=== PATIENT | female | born 1980 | race Caucasian/White ===

== ENCOUNTER → 2017-02-24 | Outpatient (CLI) | payer BC, OTHER ==
[2017-02-24 08:45] LABS: ALANINE AMINOTRANSFERASE 31 U/L (9-52); ALBUMIN 4.4 g/dL (3.5-5.0); ALKALINE PHOSPHATASE 74 U/L (38-126); ANION GAP 12 (5-19); ASPARTATE AMINO TRANSFERASE 23 U/L (14-36); BILIRUBIN,DIRECT 0.3 mg/dL (0.0-0.4); BILIRUBIN,TOTAL 0.6 mg/dL (0.2-1.3); BLOOD UREA NITROGEN 14 mg/dL (7-20); CALCIUM 9.3 mg/dL (8.4-10.2); CARBON DIOXIDE 29 mmol/L (22-30); CHLORIDE 105 mmol/L (98-107); CHOLESTEROL 171.38 mg/dL (0-200); CREATININE RESULT 0.72 mg/dL (0.52-1.25); Direct HDL 43 mg/dL (>40); GLUCOSE 93 mg/dL (75-110); POTASSIUM 4.4 mmol/L (3.6-5.0); SODIUM 145.5 mmol/L (137-145); TOTAL PROTEIN 7.3 g/dL (6.3-8.2); TRIGLYCERIDES 156 mg/dL (<150)
[2017-02-24 08:55] LABS: DIRECT LDL 95 mg/dL (<100)
[2017-02-24 08:58] LABS: VLDL CHOLESTEROL 31.2 mg/dL (10-31)
[2017-02-24 09:14] LABS: THYROID STIMULATING HORMONE 0.29 uIU/mL (0.47-4.68)
[2017-02-25 07:32] LABS: VITAMIN D 25-HYDROXY 36.9 ng/mL (30.0-100.0)
[2017-02-25 10:41] LABS: INSULIN 16.1 uIU/mL (2.6-24.9)
== END ==
LOC: LAB 08:03
PROVIDERS: ATTEND Internal Medicine Endocrinology, Diabetes & Metabolism
DX: E16.2 Hypoglycemia, unspecified (principal); E78.5 Hyperlipidemia, unspecified; E03.9 Hypothyroidism, unspecified; E55.9 Vitamin D deficiency, unspecified
CPT/HCPCS: 36415; 80053; 80061; 82306; 83036; 83525; 84439; 84443

== ENCOUNTER → 2017-07-21 | Outpatient (CLI) | payer BC ==
[2017-07-21 09:10] LABS: ALANINE AMINOTRANSFERASE 38 U/L (9-52); ALKALINE PHOSPHATASE 65 U/L (38-126); ANION GAP 15 (5-19); ASPARTATE AMINO TRANSFERASE 24 U/L (14-36); BILIRUBIN,DIRECT 0.1 mg/dL (0.0-0.4); BILIRUBIN,TOTAL 0.6 mg/dL (0.2-1.3); BLOOD UREA NITROGEN 18 mg/dL (7-20); CALCIUM 9.9 mg/dL (8.4-10.2); CARBON DIOXIDE 26 mmol/L (22-30); CHLORIDE 100 mmol/L (98-107); CHOLESTEROL 168.64 mg/dL (0-200); GLUCOSE 87 mg/dL (75-110); POTASSIUM 4.6 mmol/L (3.6-5.0); TOTAL PROTEIN 7.6 g/dL (6.3-8.2); TRIGLYCERIDES 233 mg/dL (<150)
[2017-07-21 09:21] LABS: DIRECT LDL 80 mg/dL (<100)
[2017-07-21 09:27] LABS: FREE T4 (FREE THYROXINE) 1.24 ng/dL (0.78-2.19)
[2017-07-21 09:33] LABS: VLDL CHOLESTEROL 46.6 mg/dL (10-31)
[2017-07-21 09:41] LABS: THYROID STIMULATING HORMONE 0.03 uIU/mL (0.47-4.68)
[2017-07-22 14:23] LABS: INSULIN 26.7 uIU/mL (2.6-24.9)
== END ==
LOC: LAB 08:35
PROVIDERS: ATTEND Internal Medicine Endocrinology, Diabetes & Metabolism
DX: E03.9 Hypothyroidism, unspecified (principal); E16.2 Hypoglycemia, unspecified; E78.5 Hyperlipidemia, unspecified; E55.9 Vitamin D deficiency, unspecified
CPT/HCPCS: 36415; 80053; 80061; 82306; 83036; 83525; 84439; 84443

== ENCOUNTER → 2018-01-07 | Outpatient (CLI) | payer BC ==
[2018-01-07 09:36] LABS: FREE T4 (FREE THYROXINE) 1.44 ng/dL (0.78-2.19)
[2018-01-07 09:50] LABS: THYROID STIMULATING HORMONE 1.11 uIU/mL (0.47-4.68)
== END ==
LOC: LAB 08:34
PROVIDERS: ATTEND Internal Medicine Endocrinology, Diabetes & Metabolism
DX: E03.9 Hypothyroidism, unspecified (principal)
CPT/HCPCS: 36415; 84439; 84443; 84480

== ENCOUNTER → 2018-01-17 | Outpatient (CLI) | payer BC ==
--- NOTE | 2018-01-17 12:23 | RADIOLOGY REPORT (SQ) ---
EXAM DESCRIPTION: U/S THYROID/SFT TISS HD NECK COMPLETED DATE/TIME: 01/17/2018 11:19 am REASON FOR STUDY: R59.0 LOCALIZED ENLARGED LYMPH NODES R59.0 LOCALIZED ENLARGED LYMPH NODES COMPARISON: None. TECHNIQUE: Dynamic and static bridges-scale images acquired of the thyroid gland. Selected additional c olor/power Doppler images recorded. All images stored to PACS. LIMITATIONS: None. FINDINGS: RIGHT LOBE: The right lobe of the thyroid gland measures 2.7 x 0.9 x 1.0 cm. Heterogenous echotexture. The patient has a known history of Soraya's thyroiditis. No cystic or solid masses . LEFT LOBE: The left lobe of the thyroid gland measures 3.0 x 1.3 x 1.1 cm. Heterogenous echotexture . No cystic or solid masses. ISTHMUS: The isthmus measures 2.2 mm in AP diameter, normal size. Heterogenous echotexture. No cys tic or solid masses. OTHER: A 1.2 x 1.1 x 0.6 cm lymph node is noted in the lateral aspect of the right neck. In the lateral aspect of the left neck, 2.0 x 1.2 x 0.7 cm and 0.7 x 0.5 x 0.4 cm lymph nodes. The l ymph nodes bilaterally contain a hilus of fat. IMPRESSION: 1. Heterogenous appearance to the thyroid gland. This finding likely correlates with t he patient's known history of Soraya's thyroiditis. No discrete focal mass identified. 2. Bilateral cervical lymph nodes, the larger one is identified on the left likely correlating to th e patient's history. TECHNICAL DOCUMENTATION: JOB ID: [id number]- All Rights Reserved Reading location - IP/workstation name: [email or web address]
== END ==
LOC: RAD 08:59
PROVIDERS: ATTEND Physician Assistant
DX: R59.0 Localized enlarged lymph nodes (principal)
CPT/HCPCS: 76536

== ENCOUNTER → 2018-04-05 | Outpatient (CLI) | payer BC | LOC: LAB 12:35 | PROVIDERS: ATTEND Physician Assistant | DX: E53.8 Deficiency of other specified B group vitamins (principal) | CPT/HCPCS: 36415; 82607 ==

== ENCOUNTER → 2018-09-08 | Outpatient (CLI) | payer BC | LOC: LAB 09:47 | PROVIDERS: ATTEND Physician Assistant | DX: E03.9 Hypothyroidism, unspecified (principal); E16.2 Hypoglycemia, unspecified ==

== ENCOUNTER → 2018-09-08 | Outpatient (CLI) | payer BC ==
[2018-09-08 11:25] LABS: FREE T4 (FREE THYROXINE) 1.09 ng/dL (0.78-2.19)
[2018-09-08 11:39] LABS: THYROID STIMULATING HORMONE 1.17 uIU/mL (0.47-4.68)
== END ==
LOC: LAB 09:57
PROVIDERS: ATTEND Physician Assistant
DX: E03.9 Hypothyroidism, unspecified (principal); E16.2 Hypoglycemia, unspecified
CPT/HCPCS: 36415; 83036; 84439; 84443; 84480

== ENCOUNTER → 2018-10-20 | Outpatient (CLI) | payer BC ==
[2018-10-22 19:00] LABS: MUMPS IGG AB 35.8 AU/mL (Immune >10); RUBELLA IGG AB 5.67 index (Immune >0.)
== END ==
LOC: LAB 15:28
PROVIDERS: ATTEND Internal Medicine
DX: Z57.9 Occupational exposure to unspecified risk factor (principal)
CPT/HCPCS: 36415; 86735; 86762; 86765